=== PATIENT | female | born 1965 | race Two or more races ===

== ENCOUNTER 2019-06-03 21:15 | Emergency (ER) | payer OTHER ==
[~2019-06-03] VITALS: Ht 162.6 cm; Wt 70.8 kg
[2019-06-03] MEDS ORDERED: SYNTHROID75 MCG (21:33)
[2019-06-03] MEDS ORDERED: VALSARTAN80 MG (21:33)
[2019-06-03] MEDS ORDERED: LIPITOR20 MG (21:33)
== END 2019-06-03 23:55 | disposition home or self-care (01) ==
LOC: ER 21:15
DX: R42 Dizziness and giddiness (principal); I95.89 Other hypotension